=== PATIENT | male | born 1950 ===

== ENCOUNTER → 2021-03-29 | Day surgery (SDC) | payer MEDICARE ==
[~2021-03-29] MED LIST: ASPIRIN81 MG PO; BENICAR20 MG PO; BUMETANIDE0.5 MG PO; DEXAMETHASONE SOD PHOS INJ 4 MG/ML VIAL ONE; EPHEDRINE SULFATE INJ 50 MG/ML VIAL ONE; FENTANYL CITRATE/PF 100MCG/2 ML INJ ONE; FLOMAX0.4 MG PO; FLONASE ALLERG9.9 ML INH; IMDUR PO; LIDOCAINE HCL 2% LOCAL INJ 5 ML SDV VIAL INJ ONE; LIPITOR10 MG PO; LORATADINE10 MG PO; METOPROLOL SUCC25 MG PO; MULTI-DAY PLUS1 EACH PO; NATURAL FIBER0.52 GM PO; NITROGLYCERIN0.4 MG SL; ONDANSETRON HCL INJ 2MG/ML 2ML 2 MG/ML VIAL ONE; OR PHACO EYE KIT ONE; PANTOPRAZOLE SO40 MG PO; PHENYLEPHRINE HCL 1% 10 MG/ML VIAL ONE; PLAVIX75 MG PO; POVIDONE IODINE 0.05% 0.05 % ML PO ONE; PREOP PHACO EYE KIT ONE; PROPOFOL IV EMULSION 10 MG/ML 20 ML VIAL ONE; SEVOFLURANE INHAL SOLN 250 ML PEN BTL ONE; SPIRONOLACTONE25 MG PO; ULTRAM 50MG50 MG PO; VENTOLIN HFA18 GM INH
[2021-03-29 13:37] LABS: BASOPHILS % 0.4 % (0.0-1.0); EOSINOPHILS # (AUTO) 0.1 (0.0-0.4); EOSINOPHILS % 1.5 % (0.0-6.0); HEMATOCRIT 35.6 % (38.2-49.6); LYMPHOCYTES # (AUTO) 0.9 (1.0-3.2); LYMPHOCYTES % 11.2 % (18.0-39.1); MEAN CORPUSCULAR HEMOGLOBIN 30.9 pg (28-32); MEAN CORPUSCULAR HGB CONC 30.9 g/dL (31-35); MONOCYTES # (AUTO) 0.9 (0.2-0.8); NEUTROPHILS # (AUTO) 5.7 (2.1-6.9); NEUTROPHILS % 74.6 % (38.7-80.0); PLATELET COUNT 146 x10e3/uL (140-360); RED BLOOD COUNT 3.56 x10e6/uL (4.3-5.7); RED CELL DISTRIBUTION WIDTH 14.2 % (11.7-14.4)
[2021-03-29 16:35] VITALS: BP 93/67
== END | disposition home or self-care (01) ==
LOC: OR 06:57
PROVIDERS: ATTEND Ophthalmology
DX: H25.11 Age-related nuclear cataract, right eye (principal); H57.09 Other anomalies of pupillary function; F79 Unspecified intellectual disabilities; J44.9 Chronic obstructive pulmonary disease, unspecified; I25.10 Atherosclerotic heart disease of native coronary artery without angina pectoris; I11.0 Hypertensive heart disease with heart failure; I50.9 Heart failure, unspecified; Z20.822 Contact with and (suspected) exposure to COVID-19; Z79.82 Long term (current) use of aspirin; Z95.0 Presence of cardiac pacemaker
CPT/HCPCS: 36415; 66982; 85025; J1100; J2001; J2370; J2405; J2704; J3010; U0002; V2632